=== PATIENT | male | born 1980 | race Caucasian/White ===

== ENCOUNTER 2020-01-21 17:21 | Emergency (ER) | payer BC, SELFPAY ==
--- NOTE | ~2020-01-21 | CT_ITS ---
EXAMINATION: CT abdomen pelvis w con DATE: 01/21/2020 19:04 INDICATION: Right lower quadrant abdominal pain TECHNIQUE: Computed tomography (CT) of the abdomen and pelvis was performed with 100 cc Omnipaque 350 intravenous contrast. Automated exposure control and iterative reconstruction technique were employe d. Exam dose: 1077.59 mGy-cm total exam DLP. COMPARISON: None. FINDINGS: There is there is minimal discoid atelectasis in the lower lungs. No consolidation is noted . Normal heart size. No pericardial or pleural effusion. The liver, gallbladder, bile ducts, spleen, pancreas, pancreatic duct, and adrenal glands and kidneys are unremarkable. No urinary tract calculus or hydroureteronephrosis. The urinary bladder is unremar kable. There is mild prostate enlargement and calcification. Normal caliber of the abdominal aorta. No intraperitoneal or retroperitoneal or pelvic mass lesion or adenopathy. The appendix is dilated up to 10 mm diameter. There is an appendicolith. There is mild periappendicea l fat stranding. Findings are consistent with acute appendicitis. No abscess or free air is detected. There is a small amount of free fluid in the right paracolic gutter and dependent pelvis. Small bilateral fat-containing inguinal hernias. Included skeletal structures are unremarkable. IMPRESSION: Acute appendicitis Dr. Hurt telephoned the report on 01/21/2020 at 1913 hours to [facility] ER physician Dr. Mcgraw Reviewed, dictated and finalized at [facility] Reviewed, dictated and finalized at [facility].
[2020-01-21 17:30] VITALS: BP 161/97; PULSE 110; RESP 24; TEMP 37; O2SAT 100
--- NOTE | 2020-01-21 17:57 | ED.ABDPAIN ---
HPI - Abdominal Pain General Chief Complaint: Abdominal Pain Stated Complaint: abd pain Source: patient Mode of arrival: ambulatory Limitations: clinical condition (pain) History of Present Illness HPI narrative: 39 y.o. c/o right lower quadrant swelling with sharp/burning pain, onset at 11 AM yesterday, about 30 hours ago. Pain initially waxed and waned. Much worse today, 9/10, made worse when he stands straight or when riding in a car. His temp at home prior to arrival was 100.4. He denies sweating/chills, nausea, vomiting. He had diarrhea x 4 yesterday only; no blood or mucous. Related Data Home Medications Medication Instructions Recorded Confirmed No Home Medications 01/21/20 01/21/20 Allergies Allergy/AdvReac Type Severity Reaction Status Date / Time No Known Allergies Allergy Verified 01/21/20 17:48 Review of Systems Constitutional: Constitutional: Reports no additional constitutional complaints ENT: Denies sore throat Cardiovascular: Cardiovascular: Denies chest pain Respiratory: Respiratory: Denies cough and Denies dyspnea Gastrointestinal: Gastrointestinal: Reports no additional gastrointestinal complaints Genitourinary: Genitourinary: Reports no additional male genitourinary complaints Musculoskeletal: Musculoskeletal: Reports back pain (intermittent, chronic, no worse recently. ) Integumentary/Breasts: Skin/Breast: Denies rash PMFSH Past Medical History Medical History (Updated 01/22/20 @ 06:20 by Zoë Michele CRNA) Back pain Migraines Patient denies medical problems Family History Family History (Updated 01/21/20 @ 21:50 by Saniya Tomlin RN) Father Acute myocardial infarction Hypertension Social History Social History Smoking status: Never smoker Alcohol intake: never Substance use: never Spiritual care concerns: No Exam Narrative: Exam Narrative: Walked in stooped over in pain. Const: Orientation/consciousness: patient oriented x3 Neck: Neck: no lymphadenopathy Chest: Chest palpation & inspection: normal inspection of the chest Resp: Effort & Inspection: normal respiratory effort Auscultation: clear to auscultation bilaterally Cardio: Rate: regular rate Rhythm: regular rhythm GI: GI Palp: Yes Tenderness to palpation present (GI) (RLQ, maximal tenderness at McBurney's point), Yes Guarding due to palpation present (GI), Yes Rigid due to palpation, No Hernia present and Yes Rebound tenderness present Auscultation: normal bowel sounds Other: Ravsing sign positive. : General: Yes no CVA tenderness Testes: no epidiymal tenderness Skin: General skin exam: normal color Rashes: no rashes Neuro: General: patient oriented x3 Extrem: General: normal to inspection Course Course Emergency Course: 7:20 discussed dx. of appendicitis with patient and his . Request transfer to [facility]; contacted by RN. Consultations Date: 01/21/20 Time: 19:50 Consultation #2: Spoke with Dr. Joaquín Quezada, general surgeon at [place]. Start Zosyn; arrangements for bed to be made. Vital Signs Vital signs: Vital Signs Temperature 37.0 C 01/21/20 17:30 Pulse Rate 110 H 01/21/20 17:30 Respiratory Rate 24 H 01/21/20 17:30 Blood Pressure 161/97 H 01/21/20 17:30 Pulse Oximetry 100 01/21/20 17:30 Temperature 37.0 C 01/21/20 17:30 Pulse Rate 118 H 01/21/20 20:54 Respiratory Rate 15 01/21/20 20:54 Blood Pressure 151/89 H 01/21/20 20:54 Pulse Oximetry 98 01/21/20 20:54 MDM - Abdominal Pain Lab Data Result diagrams: 01/21/20 18:22 01/21/20 18:22 Labs: Lab Results 01/21/20 01/21/20 01/21/20 Range/Units 18:04 18:22 18:22 WBC 15.9 H (4.8-10.8) K/mm3 RBC 5.26 (4.70-6.10) M/mm3 Hgb 15.6 (14.0-18.0) g/dL Hct 44.9 (40.0-54.0) % MCV 85.4 (78.0-102.0) fL MCH 29.7 (27.0-31.0) pg MCHC 34.7 (32.0-36.0) g/dL RDW 13.0 (11.6-14.4) % Plt Coun
[2020-01-21] MEDS: HYDROmorphone HCL 2 MG/ML VIAL 1 MG IV PUSH (18:00)
[2020-01-21] MEDS: ONDANSETRON INJ 4 MG/2 ML VIAL IV PUSH (18:00)
[2020-01-21] MEDS: SODIUM CHLORIDE 0.9% IV 1,000 ML 999 ML IV CONT (18:01)
[2020-01-21 18:30] LABS: Basophils Absolute Auto 0.04 K/mm3 (0.00-0.10); Basophils Percent Auto 0.3 % (0.0-1.0); Eosinophils Absolute Auto 0.05 K/mm3 (0.02-0.50); Eosinophils Percent Auto 0.3 % (1.0-6.0); Hematocrit 44.9 % (40.0-54.0); Hemoglobin 15.6 g/dL (14.0-18.0); Immature Granulocyte Absolute 0.06 K/mm3 (0.00-0.00); Immature Granulocyte Percent A 0.4 % (0.0-0.0); Lymphocytes Absolute Auto 1.62 K/mm3 (1.10-4.50); Lymphocytes Percent Auto 10.2 % (18.0-42.0); Mean Corpuscular HGB Conc 34.7 g/dL (32.0-36.0); Mean Corpuscular Hemoglobin 29.7 pg (27.0-31.0); Mean Corpuscular Volume 85.4 fL (78.0-102.0); Mean Platelet Volume 9.2 fl (8.7-11.0); Monocytes Absolute Auto 1.19 K/mm3 (0.10-0.90); Monocytes Percent Auto 7.5 % (2.0-11.0); Neutrophils Absolute Auto 12.9 K/mm3 (1.7-7.2); Neutrophils Percent Auto 81.3 % (50.0-70.0); Platelet Count Result 225 K/mm3 (150-420); Red Blood Count 5.26 M/mm3 (4.70-6.10); White Blood Count 15.9 K/mm3 (4.8-10.8)
[2020-01-21 18:46] LABS: Alanine Aminotransferase 29 U/L (16-63); Albumin Level 3.7 g/dL (3.4-5.0); Alkaline Phosphatase 82 U/L (46-116); Anion Gap 9.7 mmol/L (7-16); Aspartate Amino Transferase 20 U/L (15-37); Bilirubin,Total 1.4 mg/dL (0.00-1.00); Blood Urea Nitrogen 11 mg/dL (7-18); Calcium 8.3 mg/dL (8.5-10.1); Carbon Dioxide 29 mmol/L (21-32); Chloride 102 mmol/L (98-108); Estimated CRCL calculation 85 ml/min; Estimated Glomerular Filt Rate > 60; Glucose 99 mg/dL (70-99); Lipase 30 U/L (73-393); Osmolality Calculated 283 mOsm/kg (285-295); Potassium 3.7 mmol/L (3.5-5.1); Sodium 137 mmol/L (136-145); Total Protein 7.3 g/dL (6.4-8.2)
[2020-01-21 18:52] LABS: Lactic Acid 1.5 mmol/L (0.4-2.0)
--- NOTE | 2020-01-21 19:21 | PC.NURSE ---
ADIEL, NUTRITION SERVICES WORKER AT [facility], CONTACTED AT THIS TIME FOR TRANSFER REQUEST. ADIEL STATES SHE WILL HAVE TO CALL RN BACK SOON. AWAITING CALL BACK
[2020-01-21 19:28] LABS: Add Urine Microscopic? YES; Appearance Urine Clear (Clear); Bilirubin Urine Negative (Negative); Blood Urine 1+ (Negative); Color Urine Amber (Yellow); Glucose Urine UA Negative (Negative); Ketones Urine Negative (Negative); Leukocyte Esterase Ur Negative (Negative); Nitrate Urine Negative (Negative); Protein Urine Negative (Negative); Specific Grav Ur 1.015 (1.010-1.020); Urobilinogen Urine 0.2 mg/dL (0.2-1.0); pH Urine 5.5 (5.0-8.0)
[2020-01-21 19:33] LABS: WBC Urine None seen /hpf (0-3)
[2020-01-21 19:34] LABS: Bacteria Urine None seen /hpf; Mucus Urine None seen /lpf; Squamous Epithelial Cell Urine None seen /hpf (Few)
[2020-01-21] MEDS: HYDROmorphone HCL 2 MG/ML VIAL 0.5 MG IV PUSH (20:15)
[2020-01-21] MEDS: LACTATED RINGERS 1,000 ML 150 ML IV CONT (20:45)
[2020-01-21 20:54] VITALS: BP 151/89; PULSE 118; RESP 15; O2SAT 98
== END 2020-01-21 20:57 | disposition short-term general hospital (02) ==
PROVIDERS: Emergency Provider Family Medicine; PCP Internal Medicine
DX: K35.80 Unspecified acute appendicitis (principal)
CPT/HCPCS: 36415; 74177; 80053; 81001; 83605; 83690; 85025; 87040; 96361; 96365; 96375; 96376; 99284; 99285; J1170; J2405; J2543; J7030; J7120; Q9965

== ENCOUNTER 2020-01-21 21:27 | Inpatient (IN) | payer BC, SELFPAY ==
[2020-01-21 21:25] VITALS: BP 147/89; PULSE 110; RESP 20; TEMP 37.8; O2SAT 100; BMI 34.9
--- NOTE | 2020-01-21 21:25 | ADMGEN ---
This patient, Canelo Olvera, was admitted to [facility] Surg Room 310-01. Patient/family oriented to hospital policies and general routines including ID bracelet, bed and alarms, visiting hours, pain management, procedures, bathroom and other care routines, personal items, smoking policy, room service/diet, and visiting hours. Valuables list has been completed. Information on how to activate the Rapid Response Team has been discussed. Patient/Family are encouraged to report perceived risks to care and to ask questions if they do not understand what they are told or what they should do.
[2020-01-21] MEDS: LACTATED RINGERS 1,000 ML 125 ML IV CONT (22:10)
[2020-01-21] MEDS: MORPHINE SULFATE 2 MG/ML INJ IV PUSH (22:13)
[2020-01-21 22:53] VITALS: TEMP 39.4
[2020-01-21] MEDS: ACETAMINOPHEN 500 MG TABLET 1000 MG PO (22:53)
[2020-01-21 23:52] VITALS: TEMP 38.3
[2020-01-22] VITALS (15 sets, daily range): BP systolic 119–140; BP diastolic 71–81; PULSE 79–108; RESP 16–20; TEMP 36.2–37.8; O2SAT 92–100
[2020-01-22] MEDS: MORPHINE SULFATE 4 MG/ML INJ IV PUSH ×3 (01:17→19:20)
[2020-01-22] MEDS: MORPHINE SULFATE 2 MG/ML INJ IV PUSH ×2 (05:15→08:48)
--- NOTE | 2020-01-22 06:19 | WPDANESEPP ---
Anes - Eval Pre Procedure Procedure: lap appendectomy Date/Time: 01/22/20 06:19 Surgeon: jose Pre Op Diagnosis: acute appendicitis Patient Data Age: 39 Gender: M Height: 1.75 m Weight: 107.2 kg Last Vital Signs Temp 37.3 C 01/22/20 01:21 Pulse 108 H 01/22/20 01:21 Resp 20 01/21/20 21:25 BP 147/89 H 01/21/20 21:25 Pulse Ox 96 01/22/20 01:21 Allergies Allergy/AdvReac Type Severity Reaction Status Date / Time No Known Allergies Allergy Verified 01/21/20 17:48 Home Medications Medication Instructions Recorded Confirmed Type No Home Medications 01/21/20 01/21/20 History Laboratory Tests 01/22/20 01/22/20 05:56 05:56 WBC Pending RBC Pending Hgb Pending Hct Pending MCV Pending MCH Pending MCHC Pending RDW Pending Plt Count Pending MPV Pending Immature Gran % (Auto) Pending Neut % (Auto) Pending Lymph % (Auto) Pending [place] % (Auto) Pending Eos % (Auto) Pending Baso % (Auto) Pending Lymph # (Auto) Pending [place] # (Auto) Pending Eos # (Auto) Pending Baso # (Auto) Pending Abs Immat Gran (auto) Pending Absolute Neuts (auto) Pending Absolute Nucleated RBC Pending Nucleated RBC % Pending Sodium Pending Potassium Pending Chloride Pending Carbon Dioxide Pending BUN Pending Creatinine Pending Estim Creat Clear Calc Pending Estimated GFR Pending Glucose Pending Calcium Pending Total Bilirubin Pending AST Pending ALT Pending Alkaline Phosphatase Pending Total Protein Pending Albumin Pending Patient hx anesthesia problems: none Family hx anesthesia problems: none PMFSH Past Medical History Medical History (Updated 01/22/20 @ 06:20 by Zoë Michele CRNA) Back pain Migraines Patient denies medical problems Family History Family History (Updated 01/21/20 @ 21:50 by Saniya Tomlin RN) Father Acute myocardial infarction Hypertension Social History Social History Smoking status: Never smoker Alcohol intake: never Substance use: never Spiritual care concerns: No Exam Day of Procedure 01/22/20 06:19
[2020-01-22 06:24] LABS: Basophils Absolute Auto 0.1 K/mm3 (0.0-0.1); Basophils Percent Auto 0.4 % (0.2-1.2); Eosinophils Absolute Auto 0.1 K/mm3 (0-0.3); Eosinophils Percent Auto 0.5 % (0-4.4); Hematocrit 38.3 % (42.0-52.0); Hemoglobin 13.1 g/dL (14.0-18.0); Immature Granulocyte Absolute 0.06 K/mm3 (0.00-0.031); Immature Granulocyte Percent A 0.4 % (0-0.5); Lymphocytes Absolute Auto 1.26 K/mm3 (0.9-3.2); Lymphocytes Percent Auto 9.2 % (18.3-44.2); Mean Corpuscular HGB Conc 34.2 g/dl (32-36); Mean Corpuscular Hemoglobin 29.6 pg (26-34); Mean Corpuscular Volume 86.7 fl (80-100); Mean Platelet Volume 9.5 fl (7.4-10.4); Monocytes Absolute Auto 1.3 K/mm3 (0.1-0.6); Monocytes Percent Auto 9.8 % (2.6-8.5); Neutrophils Absolute Auto 10.9 K/mm3 (1.3-6.7); Neutrophils Percent Auto 79.7 % (45.5-73.1); Platelet Count Result 180 k/mm3 (150-375); Red Blood Count 4.42 M/mm3 (4.6-6.20); Red Cell Distribution Width 13.4 % (11.5-14.5); White Blood Count 13.7 K/mm3 (4.5-10.0)
[2020-01-22 06:31] LABS: Alanine Aminotransferase 17 U/L (4-50); Albumin Level 3.6 g/dL (3.5-5.1); Alkaline Phosphatase 62 U/L (38-126); Aspartate Amino Transferase 19 U/L (17-59); Bilirubin,Total 2.1 mg/dL (0.2-1.3); Blood Urea Nitrogen 12 mg/dL (9-20); Calcium 8.2 mg/dL (8.4-10.2); Carbon Dioxide 27 mmol/L (22-30); Chloride 100 mmol/L (98-107); Estimated CRCL calculation 88 ml/min; Estimated Glomerular Filt Rate > 60; Glucose 107 mg/dL (75-110); Potassium 3.9 mmol/L (3.4-5.0); Sodium 136 mmol/L (137-145)
[2020-01-22] MEDS: LACTATED RINGERS 1,000 ML 125 ML IV CONT ×2 (07:18→21:54)
--- NOTE | 2020-01-22 09:39 | PM.IMHP ---
H&P: HPI History of Present Illness Chief complaint: acute appendicitis Narrative: Canelo Olvera is a 39 year old male who presented to the emergency department for evaluation of lower abdominal pain. The patient reports a gradual onset of suprapubic and right lower quadrant abdominal pain starting Wednesday morning around 10:00 a.m.. He states that initially the pain was mild and he attributed the discomfort to constipation. He states that the pain slowly worsened into the next day and became a constant pain. He reports it was burning in nature. He also reports a low-grade fever at home of 100 ? F prior to coming to the ER. He then presented to the ED due to the unrelenting abdominal pain for further evaluation. CT scan of abdomen and pelvis showed acute appendicitis with appendicolith, with no evidence of perforation or abscess. Labs revealed leukocytosis with a white blood cell count of 15,900. Our service was contacted by the ED physician and the patient was admitted to our service. He was started on broad-spectrum IV antibiotics, IV fluids, analgesics, and antiemetics. He was afebrile initially in the ER, but developed a fever of 103? F around 11:00 p.m. last night. This was treated with Tylenol and he is afebrile this morning. The patient is now being seen on the medical floor. White blood cell count this morning is 13,700. The patient reports his pain is well controlled but still remains constant. It is still in the right lower quadrant and suprapubic area. Denies any nausea, vomiting, or chills. He states his last bowel movement was Wednesday and he still feels bloated and constipated. No other complaints at this time. Review of Systems Constitutional: Constitutional: Reports as per HPI, Denies chills, Denies excessive sweating, Denies fatigue, Reports fever(s), Denies headache(s) and Denies weakness Eyes: Eyes: Denies change in vision and Denies loss of vision ENT: Reports Normal hearing present, Denies dizziness and Denies headache(s) Cardiovascular: Cardiovascular: Denies chest pain, Denies syncope, Denies leg edema, Denies lightheadedness, Denies radiating jaw, neck or arm pain and Denies dyspnea Respiratory: Respiratory: Denies cough, Denies dyspnea and Denies wheezing Gastrointestinal: Gastrointestinal: Reports as per HPI, Reports no additional gastrointestinal complaints, Reports abdominal pain (RLQ, suprapubic), Reports bloating, Denies hematochezia, Denies tenesmus, Reports constipation, Denies diarrhea, Denies nausea and Denies vomiting Musculoskeletal: Musculoskeletal: Denies deformity, Denies joint swelling, Denies radiating pain into limb and Denies tingling Integumentary/Breasts: Skin/Breast: Denies pruritus, Denies wounds and Denies jaundice Neurologic: Reports Normal hearing present, Denies confusion, Denies dizziness, Denies syncope, Denies headache(s), Denies loss of vision, Denies tingling, Denies tremor(s) and Denies weakness Psychiatric: Psychiatric: Denies anxiety, Denies confusion and Denies depression Endocrine: Endocrine: Denies cold intolerance, Denies excessive sweating, Denies fatigue and Denies heat intolerance Hematologic/Lymphatic: Hematologic/Lymphatic: Denies easy bleeding and Denies easy bruising PMFSH Past Medical History Medical History Migraines Surgical History Surgical History No significant past surgical history Family History Family History Father Hypertension Heart disease Mother Breast cancer Lung cancer Throat cancer Social History Social History Social History: Patient lives at home with his , Katie, who he wishes to be his surrogate decision-maker. Lifetime non-smoker. Denies drug or alcohol use. He wishes to be a full code. Smoking
[2020-01-22] MEDS: LACTATED RINGERS 1,000 ML 30 ML IV CONT ×2 (10:35→12:16)
--- NOTE | 2020-01-22 10:40 | WPDANESEPPF ---
Anes - Initial Pre Proc Eval Procedure: Operation Date: 01/22/20 12:00 Proposed Procedures p Laparoscopic Appendectomy - Joaquín Quezada DO Date/Time: 01/22/20 10:40 Surgeon: Joaquín Quezada DO Pre Op Diagnosis: acute appendicitis Patient Data Age: 39 Gender: M Height: 5 ft 9 in Weight: 107.2 kg Last Vital Signs Temp 37.1 C 01/22/20 06:00 Pulse 98 01/22/20 06:00 Resp 18 01/22/20 06:00 BP 123/72 01/22/20 06:00 Pulse Ox 98 01/22/20 06:00 Allergies Allergy/AdvReac Type Severity Reaction Status Date / Time No Known Allergies Allergy Verified 01/21/20 17:48 Home Medications Medication Instructions Recorded Confirmed Type No Home Medications 01/21/20 01/21/20 History Laboratory Tests 01/22/20 01/22/20 05:56 05:56 WBC 13.7 K/mm3 H K/mm3 (4.5-10.0) RBC 4.42 M/mm3 L M/mm3 (4.6-6.20) Hgb 13.1 g/dL L g/dL (14.0-18.0) Hct 38.3 % L % (42.0-52.0) MCV 86.7 fl fl (80-100) MCH 29.6 pg pg (26-34) MCHC 34.2 g/dl g/dl (32-36) RDW 13.4 % % (11.5-14.5) Plt Count 180 k/mm3 k/mm3 (150-375) MPV 9.5 fl fl (7.4-10.4) Immature Gran % (Auto) 0.4 % % (0-0.5) Neut % (Auto) 79.7 % H % (45.5-73.1) Lymph % (Auto) 9.2 % L % (18.3-44.2) [place] % (Auto) 9.8 % H % (2.6-8.5) Eos % (Auto) 0.5 % % (0-4.4) Baso % (Auto) 0.4 % % (0.2-1.2) Lymph # (Auto) 1.26 K/mm3 K/mm3 (0.9-3.2) [place] # (Auto) 1.3 K/mm3 H K/mm3 (0.1-0.6) Eos # (Auto) 0.1 K/mm3 K/mm3 (0-0.3) Baso # (Auto) 0.1 K/mm3 K/mm3 (0.0-0.1) Abs Immat Gran (auto) 0.06 K/mm3 H K/mm3 (0.00-0.031) Absolute Neuts (auto) 10.9 K/mm3 H K/mm3 (1.3-6.7) Absolute Nucleated RBC 0.0 K/mm3 K/mm3 (0.0-0.012) Nucleated RBC % 0.0 % % (0.0-0.2) Sodium 136 mmol/L L mmol/L (137-145) Potassium 3.9 mmol/L mmol/L (3.4-5.0) Chloride 100 mmol/L mmol/L (98-107) Carbon Dioxide 27 mmol/L mmol/L (22-30) BUN 12 mg/dL mg/dL (9-20) Creatinine 1.20 mg/dL mg/dL (0.7-1.3) Estim Creat Clear Calc 88 ml/min ml/min Estimated GFR > 60 (59 - ) Glucose 107 mg/dL mg/dL (75-110) Calcium 8.2 mg/dL L mg/dL (8.4-10.2) Total Bilirubin 2.1 mg/dL H mg/dL (0.2-1.3) AST 19 U/L U/L (17-59) ALT 17 U/L U/L (4-50) Alkaline Phosphatase 62 U/L U/L (38-126) Total Protein 6.0 g/dL L g/dL (6.3-8.2) Albumin 3.6 g/dL g/dL (3.5-5.1) Patient hx anesthesia problems: none Family hx anesthesia problems: none [facility] Past Medical History Medical History Migraines Surgical History Surgical History No significant past surgical history Family History Family History Father Hypertension Heart disease Mother Breast cancer Lung cancer Throat cancer Social History Social History Social History: Patient lives at home with his , Katie, who he wishes to be his surrogate decision-maker. Lifetime non-smoker. Denies drug or alcohol use. He wishes to be a full code. 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 Gender identity (if verbalized by the patient): Male Sexual Orientation (if Verbalized by the Patient): Straight or Heterosexual Spiritual care concerns: No Anes - Eval Final PreProcedure Day of Procedure 01/22/20 10:40 Patient weight: obese Heart: regular rate and rhythm Lungs: clear to auscultation Airway: [place]
[2020-01-22] MEDS: BUPIVACAINE/EPINEPHRINE 0.5% 30 ML VIAL 10 ML INFILTRATE (11:33)
--- NOTE | 2020-01-22 12:10 | PM.PROC ---
Procedure Note - Detailed Date of procedure: 01/22/20 Pre-op diagnosis: acute appendicitis, umbilical hernia Post-op diagnosis: other (Acute perforated appendicitis with abscess, umbilical hernia) Procedure performed: 1. Laparoscopic Appendectomy 2. Laparoscopic drainage of intraabdominal abscess 3. Umbilical hernia repair Description of procedure: Procedure as well as risks, benefits, and alternatives were explained to the patient. The patient agreed to proceed. Written consent was obtained and placed in chart prior to procedure. The patient was brought back to surgical suite. He was placed supine on operating table. Time-out was done to confirm the patient and procedure. The patient was then intubated by the Anesthesia Department. His abdomen was prepped and draped in sterile fashion using chlorhexidine prep. A 2 cm incision was made just superior to the umbilicus. Electrocautery was used for hemostasis and for careful dissection around the hernia sac. The hernia sac was freed up from the umbilical skin and was transected at the level of the fascia using electrocautery. The peritoneum was entered through the hernia defect. A 12 mm trocar was then inserted, and carbon dioxide insufflation was used to create a pneumoperitoneum. The camera was inserted and the abdomen was inspected. Purulence fluid was identified in the pelvis and the ileum appeared to have reactive inflammation. The patient was then placed in slight Trendelenburg position and rotated to the left. A 5 mm incision was made in the suprapubic region in midline and a 5 mm trocar was inserted under direct visualization. A 5 mm incision was made in the left lower quadrant and a 5 mm trocar was inserted under direct visualization. The right lower quadrant was carefully inspected. The purulence fluid was carefully drained using a suction physics faculty member. Between the small bowel and the body of the appendix, there appeared to be an abscess that was drained as well. The cecum was identified and then this was traced back to the appendix. The appendix was identified and grasped at the mesoappendix and lifted anteriorly. Careful blunt dissection was carried out at the base of the appendix through the mesoappendix using a [place] grasper. An Endo-JUSTYN 45 mm blue load stapler was then advanced across the base of the appendix and clamped and fired. A white reload was then clamped across the mesoappendix and fired. This freed up our appendix completely. It was then placed in an EndoCatch bag and removed through the left lower quadrant port. The staple lines were then inspected. Hemostasis appeared adequate and the staple lines appeared secure. The area was then irrigated with sterile saline. The pelvis was then carefully inspected and irrigated with sterile saline as well and the remainder of the abdomen was carefully inspected. The patient was then flattened out in bed. One final inspection was made around the abdominal cavity and no other abnormalities were seen. A 19 round Iban drain was placed through the suprapubic port and advanced up along the right pericolic gutter and down into the pelvis. This was secured in place using a 3 0 nylon drain stitch. The ports were then removed under direct visualization. The camera was removed and the pneumoperitoneum was released. The fascia around the umbilical hernia was then cleared using electrocautery and the umbilical hernia defect was reapproximated using 0 Ethibond [id number] sutures. A total of 3 sutures were placed transversely to approximate the fascia. Once the sutures were tied down, the repair was inspected and appeared secure. The umbilical stalk was then reapproximated to the fascia using a 3 0 Vicryl simple interrupted suture. The deep dermis was reapproximated using 3 0 Vicryl simple interrupted sutures. 0.5% bupivacaine with epinephrine was infiltrated locally around each of the incisions. The skin of the incisions was then approximated
--- NOTE | 2020-01-22 12:52 | SUR.PHASEI ---
PT EATING ICE CHIPS.
[2020-01-22] MEDS: ENOXAPARIN 30 MG/0.3 ML SYRINGE SUB-Q (20:15)
[2020-01-22] MEDS: ACETAMINOPHEN 500 MG TABLET 1000 MG PO (21:55)
[2020-01-23 02:00] VITALS: BP 127/71; PULSE 68; RESP 16; TEMP 36.4; O2SAT 98
[2020-01-23 06:00] VITALS: BP 129/90; PULSE 58; RESP 18; TEMP 36.7; O2SAT 98
[2020-01-23 06:35] LABS: Hematocrit 39.5 % (42.0-52.0); Hemoglobin 13.6 g/dL (14.0-18.0); Mean Corpuscular HGB Conc 34.4 g/dl (32-36); Mean Corpuscular Hemoglobin 29.6 pg (26-34); Mean Corpuscular Volume 86.1 fl (80-100); Mean Platelet Volume 9.8 fl (7.4-10.4); Platelet Count Result 203 k/mm3 (150-375); Red Blood Count 4.59 M/mm3 (4.6-6.20); Red Cell Distribution Width 13.2 % (11.5-14.5); White Blood Count 13.5 K/mm3 (4.5-10.0)
[2020-01-23 06:48] LABS: Blood Urea Nitrogen 15 mg/dL (9-20); Calcium 9.2 mg/dL (8.4-10.2); Carbon Dioxide 28 mmol/L (22-30); Chloride 101 mmol/L (98-107); Estimated CRCL calculation 96 ml/min; Estimated Glomerular Filt Rate > 60; Glucose 133 mg/dL (75-110); Potassium 4.2 mmol/L (3.4-5.0); Sodium 137 mmol/L (137-145)
--- NOTE | 2020-01-23 07:20 | WPDANESPN ---
Anes - Prog Note Post-Op Date/Time: 01/23/20 07:20 Cardiovascular status: normal Respiratory status: normal Airway patency: baseline Mental status: baseline Post-Op hydration status: normal Vital Signs: Last Vital Signs Temp 36.7 C 01/23/20 06:00 Pulse 58 L 01/23/20 06:00 Resp 18 01/23/20 06:00 BP 129/90 01/23/20 06:00 Pulse Ox 98 01/23/20 06:00 I/O: Intake & Output 01/22/20 01/22/20 01/23/20 15:59 23:59 07:59 Intake Total 736 296 8989 Output Total 60 1355 1580 Balance 340 -405 470 Laboratory Tests 01/23/20 06:10 01/23/20 06:10 01/23/20 01/23/20 06:10 06:10 WBC 13.5 H RBC 4.59 L Hgb 13.6 L Hct 39.5 L MCV 86.1 MCH 29.6 MCHC 34.4 RDW 13.2 Plt Count 203 MPV 9.8 Sodium 137 Potassium 4.2 Chloride 101 Carbon Dioxide 28 BUN 15 Creatinine 1.10 Estim Creat Clear Calc 96 Estimated GFR > 60 Glucose 133 H Calcium 9.2 Post-procedural complaints: none Patient Feedback: Patient satisfied with anesthetic care.
[2020-01-23] MEDS: LACTATED RINGERS 1,000 ML 125 ML IV CONT (07:29)
[2020-01-23] MEDS: ENOXAPARIN 30 MG/0.3 ML SYRINGE SUB-Q ×2 (08:43→20:20)
--- NOTE | 2020-01-23 09:54 | PM.PNGS ---
Progress Note: A&P Assessment and Plan (1) Acute appendicitis with localized peritonitis, without perforation or abscess: Code(s): K35.30 - Acute appendicitis with localized peritonitis, without perforation or gangrene Status: Acute Assessment and Plan: POD#1 lap appy and umbilical hernia repair, with evidence of perforated appendicitis intra-operatively. Patient doing well. Continue broad-spectrum IV abx today. Will advance to full liquids and stop IV fluids. Switch to oral pain medication as needed. Encouraged walking the halls and IS use. Pathology pending. Additional Plan Discussed plan of care with Dr. Quezada. Subjective Subjective Date/Time Seen: 01/23/20 09:05 Post Op day: 1 (lap appy with umbilical hernia repair) Patient reports: pain is less, tolerating liquids well, voiding w/o difficulty, flatus and no bowel movement Interval history: Patient reports feeling well today. Sitting up in the chair eating a clear liquid tray. Reports flatus today but no BM. Reports walking in the room and tolerating activity well. Some soreness at incisions with movement, but no significant pain. Denies nausea, vomiting, or bloating. No other complaints at this time. Review of Systems Review of Systems: All systems reviewed & are unremarkable except as noted in HPI and below Constitutional: Constitutional: Reports no additional constitutional complaints and Denies fever(s) Cardiovascular: Cardiovascular: Reports no additional cardiovascular complaints, Denies chest pain and Denies leg edema Respiratory: Respiratory: Reports no additional respiratory complaints, Denies chest congestion, Denies cough and Denies dyspnea Gastrointestinal: Gastrointestinal: Reports as per HPI and Reports no additional gastrointestinal complaints Exam Const: General: comfortable, no acute distress, alert and awake Orientation/consciousness: patient oriented x3 Resp: Effort & Inspection: normal respiratory effort Auscultation: clear to auscultation bilaterally Cardio: Rate: regular rate Rhythm: regular rhythm Heart sounds: S1 normal heart sound present and S2 normal heart sound present GI: Inspection: incision (Abdominal incisions clean/dry/intact.) and other (LIGIA drain with cloudy bloody drainage) GI Palp: Yes Soft to palpation, Yes Tenderness to palpation present (GI) (appropriate incisional tenderness), No Guarding due to palpation present (GI) and No Rebound tenderness present Auscultation: normal bowel sounds Neuro: General: patient oriented x3 and moves all extremities Cranial nerves: Yes CN's II-XII intact bilaterally Speech: normal speech Extrem: General: no clubbing, cyanosis or edema and no calf tenderness Psych: Mental Status: mental status grossly normal Attitude: cooperative Thought process: Normal thought process present Thought content: Yes Normal thought content present Insight: Good insight present (Psych) Judgement: Good judgement present (Psych) Objective Data Vital Signs Vital Signs: Vital Signs - 24 hr 01/22/20 10:59 01/22/20 12:16 01/22/20 12:30 Temperature 99.4 F 100.1 F H Pulse Rate 104 H 99 97 Respiratory Rate 16 18 19 Blood Pressure 137/73 120/74 127/77 Pulse Oximetry 93 97 99 01/22/20 12:45 01/22/20 13:00 01/22/20 13:15 Temperature 98.7 F Pulse Rate 96 94 93 Respiratory Rate 20 18 18 Blood Pressure 133/76 135/79 130/76 Pulse Oximetry 100 92 92 01/22/20 13:30 01/22/20 13:45 01/22/20 14:00 Temperature 97.2 F L 97.5 F L 97.5 F L Pulse Rate 87 87 88 Respiratory Rate 17 16 16 Blood Pressure 126/76 140/81 136/71 Pulse Oximetry 93 93 94 01/22/20 14:30 01/22/20 16:00 01/22/20 22:00 Temperature 98.6 F 97.3 F L 98.8 F Pulse Rate 79 80 82 Respiratory Rate 18 18 18 Blood Pressure 119/79 132/73 128/77 Pulse Oximetry 95 96 97 01/23/20 02:00 01/23/20 06:00 Temperature 97.6 F 98.1 F Pulse Rate 68 58 L Respiratory Rate 16 18 Blood Pressure 127/71 129/90 Pulse Oximetry 98 9
[2020-01-23 10:00] VITALS: BP 129/77; PULSE 75; RESP 16; TEMP 36.7; O2SAT 99
[2020-01-23 14:00] VITALS: BP 131/81; PULSE 73; RESP 18; TEMP 36.4; O2SAT 99
[2020-01-23 18:00] VITALS: BP 127/81; PULSE 76; RESP 18; TEMP 36.8; O2SAT 98
[2020-01-23 21:32] VITALS: BP 140/81; PULSE 62; RESP 16; TEMP 36.8; O2SAT 100
[2020-01-24 06:00] VITALS: BP 144/74; PULSE 67; RESP 16; TEMP 36.3; O2SAT 97
[2020-01-24 06:16] LABS: Hemoglobin 12.5 g/dL (14.0-18.0); Mean Corpuscular HGB Conc 34.7 g/dl (32-36); Mean Corpuscular Hemoglobin 29.5 pg (26-34); Mean Corpuscular Volume 84.9 fl (80-100); Mean Platelet Volume 9.7 fl (7.4-10.4); Platelet Count Result 230 k/mm3 (150-375); Red Blood Count 4.24 M/mm3 (4.6-6.20); Red Cell Distribution Width 13.4 % (11.5-14.5); White Blood Count 10.9 K/mm3 (4.5-10.0)
[2020-01-24] MEDS: ENOXAPARIN 30 MG/0.3 ML SYRINGE SUB-Q (08:49)
--- NOTE | 2020-01-24 10:09 | PM.DS ---
DS: Admitting Diagnosis Admitting Diagnosis Admitting Diagnosis: Acute appendicitis with localized peritonitis, without perforation or gangrene DS: Discharge Diagnosis Discharge Diagnosis (1) Acute appendicitis with perforation and peritoneal abscess: Code(s): K35.33 - Acute appendicitis with perforation and localized peritonitis, with abscess Status: Acute (2) Umbilical hernia without obstruction and without gangrene: Code(s): K42.9 - Umbilical hernia without obstruction or gangrene Status: Acute DS: Summary Hospital Course Reason for hospitalization: Acute appendicitis Hospital Course: This is a 39-year-old man who presented to hospital 01/21/2020 with findings of acute appendicitis. He presented to [facility] with pain for the past 2 days. Was afebrile at the time but had an elevated white blood count and CT showed evidence acute appendicitis. Was then transferred to [facility] for further treatment and was started on Zosyn IV. He did begin having fevers once he was here at [facility]. He underwent laparoscopic appendectomy and umbilical hernia repair on 01/22/2020. He was found to have perforated appendicitis with abscess. A surgical drain was placed. Postoperatively he was started on clear liquid diet and was carefully monitored for any worsening pains or signs of ileus. On postop day 1 he was doing well pain was controlled. White blood count was slowly coming down. He was advanced to a full liquid diet. On postop day 2 he was advanced to a regular diet was remaining hemodynamically stable. He had no fevers after the initial fevers on admission. He was ambulating well and his bowels were moving. He was discharged on postop day 2. Status at Discharge Functional status at discharge: independent ambulation Overall status at discharge: patient is progressing back to baseline Time Spent with Patient Time attestation: Total time spent providing and/or coordinating discharge services: Time spent: Less than 30 minutes Exam Const: General: no acute distress Resp: Effort & Inspection: normal respiratory effort Auscultation: clear to auscultation bilaterally Cardio: Rate: regular rate Rhythm: regular rhythm GI: GI Palp: Yes Soft to palpation and Yes Tenderness to palpation present (GI) (Incisional) Skin: General skin exam: normal color Extrem: General: normal to inspection Psych: Mental Status: mental status grossly normal Speech and movement: Normal speech and movement present DS: Data Data Completed and Pending Completed studies during hospitalization: Pending at discharge 01/22/20 11:38 Surgical [PTH] Routine Labs on day of discharge: Labs from last 24 hours 01/24/20 05:48 WBC 10.9 H RBC 4.24 L Hgb 12.5 L Hct 36.0 L MCV 84.9 MCH 29.5 MCHC 34.7 RDW 13.4 Plt Count 230 MPV 9.7 Discharge Plan Discharge Attending physician on discharge: Joaquín Brice Discharging Clinician: Joaquín Brice Patient Disposition: Home, Self-Care Activity: other - see discharge instructions Diet: regular Wound Care Instructions: other - see discharge instructions Discharge Instructions: DISCHARGE INSTRUCTION SHEET FOR HERNIA, GALLBLADDER AND APPENDIX SURGERIES DR. BRICE PATIENT TO TAKE HOME 1. May shower in 24 hours, no soaking in bath x 2weeks. 2. Call office for: Wound increasingly painful or bleeding Vomiting Fever of greater than 101 degrees 3. If no bowel movement for three days, take 1 oz. (30 ml) Milk of Magnesia or MiraLax 17g 1 to 2 times daily. 4. No heavy lifting > 10-15 pounds x6 weeks. 5. No driving for 3 days or while taking narcotic pain medications. 6. Ice to surgical site for 48 hours (30 min on, then 30 min off). 7. Up walking 10-30 minutes three times per day. 8. Resume previous home medications. 9. Follow
== END 2020-01-24 13:00 | disposition home or self-care (01) | DRG 340 ==
PROVIDERS: Admitting Provider Surgery; PCP Internal Medicine; Visit Provider Surgery
PROC: 0DTJ4ZZ Resection of Appendix, Percutaneous Endoscopic Approach (ICD-10-PCS; CPT 44970; principal; 2020-01-22 12:00)
DX: K35.33 Acute appendicitis with perforation, localized peritonitis, and gangrene, with abscess (principal); K42.9 Umbilical hernia without obstruction or gangrene
CPT/HCPCS: 36415; 80048; 80053; 85025; 85027; 88300; 88304; 96361; 96365; 96372; 96375; 96376; A9270; G0378; J0330; J1100; J1170; J1650; J2250; J2270; J2370; J2405; J2543; J2704; J3010; J7030; J7120

== ENCOUNTER 2020-05-25 22:48 | Emergency (ER) | payer BC, SELFPAY ==
--- NOTE | ~2020-05-25 | XR_ITS ---
EXAMINATION: XR hand LT 2V DATE: 05/25/2020 23:40 INDICATION: Left hand injury. TECHNIQUE: 3 views of left hand were obtained. COMPARISON: None. FINDINGS: There is amputation of the second digit at the base of the distal phalanx. There is amputat ion of the third digit at the distal interphalangeal joint. Joint spaces are normal. IMPRESSION: 1. Amputation of the second and third digits. Reviewed, dictated and finalized at location A. [employer] SAL[employer] REPRESENTATIVE
[2020-05-25 23:05] VITALS: BP 176/114; PULSE 113; RESP 20; TEMP 36.6; O2SAT 96
[2020-05-25] MEDS: ceFAZolin SODIUM 1 GM VIAL IM (23:44)
[2020-05-25] MEDS: LIDOCAINE HCL 1% LOCAL INJ 20 ML VIAL (23:44)
--- NOTE | 2020-05-25 23:47 | PC.NURSE ---
Call placed to [facility] for transfer per pt. request. Awaiting call back from [facility]
--- NOTE | 2020-05-26 00:07 | WC.ED.TRAUMA ---
HPI - Trauma General Chief Complaint: Trauma Stated Complaint: Cut fingers Source: patient and family History of Present Illness HPI narrative: this is a 40-year-old male presents after he was using a circular saw around 10 30 this evening and amputated 2 of his fingers on the left hand on his 2nd and 3rd fingers at the middle phalanx at zone 1 C. The patient currently is has no past medical history nonsmoker, rates his pain at about a 6/10 it is throbbing but has a good strong radial pulse currently no bleeding. complaint: injury ( Circular saw injury) Onset (ago): hour(s) Loss of Consciousness: no Location - Extremities: Left: hand ( amputation injury of left 2nd and 3rd fingers an zone 1 C) Related Data Home Medications Medication Instructions Recorded Confirmed No Home Medications 02/02/20 05/25/20 Allergies Allergy/AdvReac Type Severity Reaction Status Date / Time No Known Allergies Allergy Verified 02/29/20 13:32 Review of Systems Review of Systems: All systems reviewed & are unremarkable except as noted in HPI and below PMFSH Past Medical History Medical History (Updated 05/26/20 @ 00:13 by Kyle Rivero MD) Migraines Surgical History Surgical History History of laparoscopic appendectomy 01/22/20 Umbilical hernia without obstruction and without gangrene Family History Family History Father Hypertension Heart disease Mother Breast cancer Lung cancer Throat cancer Social History Social History Social History: Patient lives at home with his , Katie, who he wishes to be his surrogate decision-maker. Lifetime non-smoker. Denies drug or alcohol use. He wishes to be a full code. 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 Gender identity (if verbalized by the patient): Male Spiritual care concerns: No Exam Const: General: cooperative, healthy appearing and comfortable Eyes: General: appearance normal, both eyes and all related structures Neck: Neck: normal visual inspection, full ROM and no lymphadenopathy Resp: Effort & Inspection: normal respiratory effort and able to speak in complete sentences Cardio: Jugular venous distension: no JVD Palpation: normal PMI Rate: regular rate Heart sounds: S1 normal heart sound present and S2 normal heart sound present GI: Inspection: normal to inspection Back/Spine/Pelvis: Back: no CVA tenderness Skin: General skin exam: normal color Other: Amputation injury to his left 2nd and 3rd finger the middle phalanx zone 1 C Course Course Emergency Course: patient currently resting comfortably has upon let pain level of 6/10 the fingers are throbbing, the area was some wrapped in saline gauze and the 2 fingertips wrapped and saline gauze and placed on ice, the patient received a g of cefazolin, a g of morphine and patient is up-to-date with his tetanus. Spoke to hand surgery and Dr. SHEARER which will be the accepting surgeon, and spoke to in the emergency department at [facility] which will be the accepting ER doctor. Informed patient and family that this information and the patient will be driven in a private car by his . Vital Signs Vital signs: Vital Signs Temperature 36.6 C 05/25/20 23:05 Pulse Rate 113 H 05/25/20 23:05 Respiratory Rate 20 05/25/20 23:05 Blood Pressure 176/114 H 05/25/20 23:05 Pulse Oximetry 96 05/25/20 23:05 Temperature 36.6 C 05/25/20 23:05 Pulse Rate 113 H 05/25/20 23:05 Respiratory Rate 20 05/25/20 23:05 Blood Pressure 176/114 H 05/25/20 23:05 Pulse Oximetry 96 05/25/20 23:05 Critical Care Time Critical Care Time Critical Care Time: No Discharge Plan
[2020-05-26] MEDS: MORPHINE SULFATE (*CRX) 2 MG/ML INJ IM (00:10)
[2020-05-26 00:11] VITALS: BP 145/94; PULSE 110; RESP 18; O2SAT 96
== END 2020-05-26 00:15 | disposition short-term general hospital (02) ==
PROVIDERS: Emergency Provider Emergency Medicine; PCP Internal Medicine
DX: S68.111A Complete traumatic metacarpophalangeal amputation of left index finger, initial encounter (principal); S68.113A Complete traumatic metacarpophalangeal amputation of left middle finger, initial encounter; W29.8XXA Contact with other powered hand tools and household machinery, initial encounter
CPT/HCPCS: 73120; 96372; 99284; J0690; J2270

== ENCOUNTER 2020-11-29 10:54 | Outpatient (CLI) | payer BC, SELFPAY ==
--- NOTE | ~2020-11-29 | XR_ITS ---
XR heel LT min 2V DATE: 11/29/2020 11:22 INDICATION: Plantar and posterior heel pain TECHNIQUE: Axial and lateral views COMPARISON: 11/29/2020 left ankle FINDINGS: There is moderately prominent plantar calcaneal enthesopathy without associated periostitis or erosive change. No posterior calcaneal enthesopathy. No calcaneal fracture or bone destruction. IMPRESSION: Plantar calcaneal enthesopathy Reviewed, dictated and finalized at location A.
--- NOTE | ~2020-11-29 | XR_ITS ---
XR ankle LT min 3V DATE: 11/29/2020 11:22 INDICATION: Plantar and posterior heel pain TECHNIQUE: 4 views of left ankle COMPARISON: None FINDINGS: Prominent plantar calcaneal enthesopathy without erosive change or periostitis. No fracture or dislocation of the ankle or disruption of the ankle mortise. No periosteal reaction or bone destruction. IMPRESSION: Prominent plantar calcaneal enthesopathy Reviewed, dictated and finalized at location A.
== END 2020-11-29 10:55 | disposition home or self-care (01) ==
LOC: CHSIMG 10:56
PROVIDERS: PCP Internal Medicine; Visit Provider Internal Medicine
DX: M79.672 Pain in left foot (principal); M25.572 Pain in left ankle and joints of left foot
CPT/HCPCS: 73610; 73650

== ENCOUNTER 2021-08-25 19:17 | Emergency (ER) | payer OTHER, SELFPAY ==
[2021-08-25 19:24] VITALS: BP 169/101; PULSE 86; RESP 20; TEMP 36.7; O2SAT 100
--- NOTE | 2021-08-25 19:28 | ED.EAR ---
HPI - Ear Problem General Chief complaint: Ear Stated complaint: Ear Pain Time Seen by Provider: 08/25/21 19:28 Source: patient History of Present Illness HPI Narrative: PATIENT PRESENTS WITH EAR PAIN. DENIES ANY OTHER SYMPTOMS. NO DRAINAGE FROM EAR AND NO HEARING LOSS. HAS NOT TAKEN ANYTHING OVER THE COUNTER FOR SYMPTOMS. Complaint: ear pain Related Data Home Medications Medication Instructions Recorded Confirmed propranolol 80 mg PO HS 08/25/21 08/25/21 Allergies Allergy/AdvReac Type Severity Reaction Status Date / Time No Known Allergies Allergy Verified 08/25/21 19:31 Review of Systems Review of Systems: CONSTITUTIONAL: Denies fever, chills, or sweats. EYES: Denies visual changes, redness, or discharge. ENT: Denies rhinorrhea, congestion, sore throat, or otalgia. CARDIOVASCULAR: Denies chest pain, palpitations, or edema. RESPIRATORY: Denies cough or dyspnea. GASTROINTESTINAL: Denies abdominal pain, nausea, vomiting, or diarrhea. GENITOURINARY: Denies dysuria or hematuria. SKIN: Denies rash or itching. MUSCULOSKELETAL: Denies back pain, joint pain, or myalgia. NEUROLOGIC: Denies headache, numbness, or weakness. PSYCHIATRIC: Denies anxiety or depression. [facility] Past Medical History Medical History (Updated 08/25/21 @ 19:31 by AINSLEY Ulrich) Migraines Surgical History Surgical History History of laparoscopic appendectomy 01/22/20 Umbilical hernia without obstruction and without gangrene Family History Family History Father Hypertension Heart disease Mother Breast cancer Lung cancer Throat cancer Social History Social History Social History: Patient lives at home with his , Katie, who he wishes to be his surrogate decision-maker. Lifetime non-smoker. Denies drug or alcohol use. He wishes to be a full code. 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 Gender identity (if verbalized by the patient): Male Sexual Orientation (if Verbalized by the Patient): Straight or Heterosexual Spiritual care concerns: No Comments At time of signature, agree with nursing past medical, surgical, social and family history. There is no relevant family history pertinent to the presenting complaint Exam Narrative: GENERAL: Well-appearing, well-nourished, and in no acute distress. HEAD: Normocephalic, atraumatic. EYES: PERRLA and EOMI. ENT: Nares clear, no rhinorrhea or epistaxis. Mucous membranes moist. Right ear moderate erythremia to canal TM bulging left TM intact good light reflex NECK: Supple. CHEST: Clear to auscultation. No respiratory distress. HEART: Regular rate and rhythm. No murmur heard. Normal peripheral pulses. ABDOMEN: Soft, nontender, nondistended, normal active bowel sounds. EXTREMITIES: Normal range of motion. No edema. SKIN: Warm, dry, no rash. NEURO: No focal deficits. Alert and oriented x3. Pam Coma Scale Eye Opening: Spontaneous 4 Pam Coma Scale Motor: Obeys Commands 6 [place] Coma Scale Verbal: Oriented 5 Pam Coma Scale Total 15 Course Course Level of Care: Express Care Visit Medical Decision Making Differential Diagnosis Differential Diagnosis: Otitis media, otitis externa, eustachian tube function Vital Signs Vital Signs: Addressed elevated BP today. Today's blood pressure higher than recommended range. Discussed importance of follow -up with PCP and possible custodial effects/cardiovascular events related to HTN. Currently patient denies headache, dizziness, vision changes, CP or shortness of breath. Critical Care Time Critical Care Time Critical Care Time: No Discharge Plan Discharge Clinical Impression: Otitis media Patient Disposition:
== END 2021-08-25 19:39 | disposition home or self-care (01) ==
PROVIDERS: Emergency Provider Nurse Practitioner Family; PCP Internal Medicine
DX: H66.91 Otitis media, unspecified, right ear (principal)
CPT/HCPCS: 99213; G0463

== ENCOUNTER 2022-06-26 07:12 | Outpatient (CLI) | payer OTHER, SELFPAY ==
[2022-06-26 07:46] LABS: Add Urine Microscopic? NO; Appearance Urine Clear (Clear); Basophils Absolute Auto 0.02 K/mm3 (0.00-0.10); Basophils Percent Auto 0.3 % (0.0-1.0); Bilirubin Urine Negative (Negative); Blood Urine Negative (Negative); Color Urine Yellow (Yellow); Eosinophils Absolute Auto 0.23 K/mm3 (0.02-0.50); Eosinophils Percent Auto 3.1 % (1.0-6.0); Glucose Urine UA Negative (Negative); Hematocrit 41.4 % (40.0-54.0); Hemoglobin 14.4 g/dL (14.0-18.0); Immature Granulocyte Absolute 0.04 K/mm3 (0.00-0.00); Immature Granulocyte Percent A 0.5 % (0.0-0.0); Ketones Urine Negative (Negative); Leukocyte Esterase Ur Negative (Negative); Lymphocytes Percent Auto 24.2 % (18.0-42.0); Mean Corpuscular HGB Conc 34.8 g/dL (32.0-36.0); Mean Corpuscular Hemoglobin 29.9 pg (27.0-31.0); Mean Corpuscular Volume 85.9 fL (78.0-102.0); Monocytes Percent Auto 8.1 % (2.0-11.0); Neutrophils Absolute Auto 4.8 K/mm3 (1.7-7.2); Neutrophils Percent Auto 63.8 % (50.0-70.0); Nitrate Urine Negative (Negative); Platelet Count Result 201 K/mm3 (150-420); Protein Urine Negative (Negative); Red Blood Count 4.82 M/mm3 (4.70-6.10); Red Cell Distribution Width 12.9 % (11.6-14.4); Specific Grav Ur 1.025 (1.010-1.020); Urobilinogen Urine 0.2 mg/dL (0.2-1.0); White Blood Count 7.4 K/mm3 (4.8-10.8)
[2022-06-26 08:16] LABS: Alanine Aminotransferase 30 U/L (16-63); Albumin Level 3.8 g/dL (3.4-5.0); Alkaline Phosphatase 80 U/L (46-116); Anion Gap 7 mmol/L (8-16); Aspartate Amino Transferase 23 U/L (15-37); Bilirubin,Total 0.6 mg/dL (0.00-1.00); Blood Urea Nitrogen 14 mg/dL (7-18); Calcium 8.6 mg/dL (8.5-10.1); Carbon Dioxide 30 mmol/L (21-32); Chloride 109 mmol/L (98-108); Cholesterol 190 mg/dL (0-200); Estimated Glomerular Filt Rate > 60; Glucose 98 mg/dL (70-99); HDL Direct 34 mg/dL (40-60); LDL Cholesterol Calculated 103 mg/dL (<130); Osmolality Calculated 302 mOsm/kg (285-295); Sodium 146 mmol/L (136-145); Total Protein 6.7 g/dL (6.4-8.2); Triglycerides 267 mg/dL (0-150)
[2022-07-03 16:12] LABS: Testosterone Free 95.3 pg/mL (35.0-155.0); Testosterone Total 404 ng/dL (250-1100)
== END 2022-06-26 07:13 | disposition home or self-care (01) ==
LOC: CHSLAB 07:15
PROVIDERS: PCP Internal Medicine; Visit Provider Internal Medicine
DX: Z00.00 Encounter for general adult medical examination without abnormal findings (principal); I10 Essential (primary) hypertension; N52.9 Male erectile dysfunction, unspecified
CPT/HCPCS: 36415; 80053; 80061; 81003; 84402; 84403; 84443; 85025